=== PATIENT | male | born 1950 | race African-American/Black ===

== ENCOUNTER 2018-05-13 21:25 | Emergency (ER) | payer SELFPAY ==
[~2018-05-13] VITALS: Ht 170.2 cm; Wt 89.1 kg
[~2018-05-13 21:25] MED LIST: ASPI81TA87 PO; HYDR-4031 PO; HYDR25TA PO; LISI40TA4 PO; PARO10OR3 PO; RISP2TAB76 PO; SIMV-260 PO; TERA1CAP4 PO
[2018-05-13] MEDS ORDERED: ATOR20TA86 PO (21:44)
[2018-05-13] MEDS ORDERED: METO25 PO (21:44)
[2018-05-13] MEDS ORDERED: AMLO-512 PO (21:44)
[2018-05-13] MEDS ORDERED: LISI-662 PO (21:44)
[2018-05-13 22:07] LABS: EOSINOPHILS % (AUTO) 1.2 % (1.0-6.0); HEMATOCRIT 39.9 % (41-53); HEMOGLOBIN 13.3 g/dL (13.5-17.5); LYMPHOCYTES # (AUTO) 2.5 K/uL (1.0-4.8); LYMPHOCYTES % (AUTO) 31.1 % (22.0-44.0); MEAN CORPUSCULAR HEMOGLOBIN 28.7 pg (26.0-34.0); MEAN CORPUSCULAR HGB CONC 33.3 G/dL (31.0-37.0); MEAN CORPUSCULAR VOLUME 86 fL (80-100); MONOCYTES # (AUTO) 0.5 K/uL (0.1-1.0); MONOCYTES % (AUTO) 6.5 % (2.0-9.0); NEUTROPHILS # (AUTO) 4.9 K/uL (1.8-7.7); NEUTROPHILS % (AUTO) 60.2 % (40.0-70.0); PLATELET COUNT (AUTO) 294 K/uL (150-450); RED BLOOD CELL COUNT(AUTO) 4.64 MIL/uL (4.50-5.90); RED CELL DISTRIBUTION WIDTH 14.9 % (11.5-14.5)
[2018-05-13 22:22] LABS: ANION GAP 3 mmol/L (8-16); CARBON DIOXIDE 30 mmol/L (22-29); CHLORIDE 104 mmol/L (98-107); GLOMERULAR FILTR. RATE CALC > 60 mL/min (>60); GLUCOSE,RANDOM 89 mg/dL (70-110); SODIUM SERUM 137 mmol/L (136-145); UREA NITROGEN, BLOOD 14 mg/dL (7-18)
[2018-05-13 22:27] LABS: ALANINE AMINOTRANSFERASE 20 U/L (12-78); ALBUMIN 3.6 g/dL (3.4-5.0); ALKALINE PHOSPHATASE 92 U/L (46-116); ASPARTATE AMINOTRANSFERASE 19 U/L (15-37); BILIRUBIN,TOTAL 0.3 mg/dL (0.1-1.0); TOTAL PROTEIN, SERUM 7.6 g/dL (6.4-8.2)
[2018-05-14] MEDS ORDERED: AmLODIPine BESYLATE 5 MG TABLET PO ONE (02:00)
[2018-05-14] MEDS ORDERED: LISINOPRIL 10 MG TABLET PO ONE (02:00)
[2018-05-14] MEDS ORDERED: KETOROLAC TROMETHAMINE 60 MG/2 ML VIAL IM ONE (02:00)
[2018-05-14] MEDS ORDERED: ACETAMINOPHEN 500 MG TABLET PO ONE (02:00)
[2018-05-14 02:42] VITALS: BP 148/88
== END 2018-05-14 02:48 | disposition home or self-care (01) ==
LOC: EMS 21:26
DX: R51 Headache (principal); R07.89 Other chest pain; F17.210 Nicotine dependence, cigarettes, uncomplicated; I11.9 Hypertensive heart disease without heart failure; I25.10 Atherosclerotic heart disease of native coronary artery without angina pectoris; F32.9 Major depressive disorder, single episode, unspecified; F20.9 Schizophrenia, unspecified; Z79.82 Long term (current) use of aspirin; Z79.899 Other long term (current) drug therapy
CPT/HCPCS: 36415; 71045; 80053; 84484; 85025; 93005; 99284; 99406; J1885

== ENCOUNTER 2020-06-23 10:24 | Emergency (ER) | payer OTHER ==
[~2020-06-23] VITALS: Ht 167.6 cm; Wt 75.9 kg
[~2020-06-23 10:24] MED LIST changes: +AMLO-258 PO; +ATOR20TA86 PO; -HYDR-4031 PO; -HYDR25TA PO; +LISI-894 PO; -LISI40TA4 PO; +METO25 PO; -PARO10OR3 PO; -RISP2TAB76 PO; -SIMV-260 PO; -TERA1CAP4 PO
[2020-06-23] MEDS ORDERED: IBUPROFEN 600 MG TABLET PO ONE (11:00)
[2020-06-23 11:44] VITALS: BP 177/91
== END 2020-06-23 12:07 | disposition home or self-care (01) ==
LOC: EMS 10:28
DX: S39.012A Strain of muscle, fascia and tendon of lower back, initial encounter (principal); I25.10 Atherosclerotic heart disease of native coronary artery without angina pectoris; F32.9 Major depressive disorder, single episode, unspecified; E78.00 Pure hypercholesterolemia, unspecified; W01.0XXA Fall on same level from slipping, tripping and stumbling without subsequent striking against object, initial encounter; Z91.81 History of falling; Y93.89 Activity, other specified; Y92.89 Other specified places as the place of occurrence of the external cause; Y99.8 Other external cause status
CPT/HCPCS: 72131; 73503; 99284